=== PATIENT | male | born 1970 | race Caucasian/White ===

== ENCOUNTER → 2016-10-29 | Outpatient (CLI) | payer OTHER ==
[~2016-10-29] VITALS: Ht 190.5 cm; Wt 128.5 kg
[~2016-10-29] MED LIST: ASPIRIN EC81 M1 PO; CALCIUM 600 +1 EAC5 PO; DOLOPHINE HCL10 MG PO; DOXEPIN 10 MG C10 M1 PO; DOXEPIN 25 MG C25 M1 PO; FENTANYL PA12 MCG/H1 TP; FENTANYL PA12 MCG/HR TP; FENTANYL PA25 MCG/HR TD; FENTANYL PA25 MCG/HR TP; FENTANYL PA50 MCG/HR TP; GABAPENTIN600 M1 PO; GLUCOSAMINE &1 EACH PO; GRALISE600 MG PO; IBUPROFEN 800800 M1 PO; LISINOPRIL10 MG PO; LISINOPRIL20 MG PO; LYRICA 50 MG50 MG PO; METANX TABLET1 EAC1 PO; METHADONE HCL 110 M1 PO; METHADOSE10 M1 PO; MS CONTIN15 MG PO; MS CONTIN30 MG PO; MULTIVITAMINS PO; OXYCODONE HCL15 MG PO; OXYCODONE-ACET1 EAC2 PO; OXYCONTIN10 M1 PO; OXYCONTIN20 M1 PO; PERCOCET 10-321 EACH PO; PRILOSEC 20 MG20 MG PO; PROVIGIL 200 M200 M1 PO
--- NOTE | ~2016-10-29 | HPC ---
[facility] [address] [place] [address] PAIN MANAGEMENT CONSULTATION Name: FITZ HARRIS Room #: REG [facility]#: [id number] Admission: 10/29/16 Attend Phys: Jarod Green MD Discharge: Date of : 66 Report #: [id number] THIS REPORT FOR: //name// CC: Teja Green DATE OF SERVICE: 10/29/2016 FOLLOWUP COMPLAINT: I stopped taking the morphine, it made me itch too much. FOLLOWUP HISTORY: The patient is a 46-year-old gentleman who has been followed in the pain clinic because of chronic pain from peripheral neuropathy. It involves his lower extremities. As you may recall, he has been to the [facility] in regards to this. A workup found no true explanation for his neuropathy. He has found doxepin, gabapentin and ibuprofen to be helpful. He was taking MS Contin. He has noticed over the months use of the MS Contin has increased his pruritus. He has slowly stopped taking this medication and has weaned off of it. He has had no complications from withdrawal. PHYSICAL EXAMINATION: The patient is alert. He appears to be taking his medications as prescribed. Recently had an episode where he ate a salad. There was walnut involved. He had a major attack with shortness of breath and more difficulty breathing. He took a number of Benadryl tablets. Things subsided and improved. Blood pressure 156/95, pulse 83, respiratory rate 18, room air saturation 96%. The patient has some pain in his left leg, areas of pain and discomfort in the low back area, testicular pain which remains chronic with some tenderness in this area. Pain, numbness and weakness in his feet in the L4-L5 distribution. As you may recall, he had L4-L5 fusion in the past. ASSESSMENT AND PLAN: Chronic pain, lower extremities with peripheral neuropathy, treated with complex pain regiment using opioids. The patient has stopped taking morphine and has only used OxyContin 15 mg b.i.d. We would like to thank you for letting us participate in his care. We hope he continues to improve. By: [id number] Jarod Green MD /nt
== END | disposition home or self-care (01) ==
LOC: PAIN 05:59
DX: G62.9 Polyneuropathy, unspecified (principal)

== ENCOUNTER → 2017-01-23 | Outpatient (CLI) | payer OTHER ==
[~2017-01-23] VITALS: Ht 193 cm; Wt 125.9 kg
--- NOTE | ~2017-01-23 | HPC ---
[facility] [address] [place] [address] PAIN MANAGEMENT CONSULTATION Name: FITZ HARRIS Room #: REG [facility]#: [id number] Admission: 01/23/17 Attend Phys: Jarod Green MD Discharge: Date of : 66 Report #: [id number] THIS REPORT FOR: //name// CC: ILANA Green DATE OF SERVICE: 01/23/2017 FOLLOWUP COMPLAINT: Here for medication and things are going reasonably well. FOLLOWUP HISTORY: The patient is a 46-year-old gentleman who has been followed in the pain clinic because of chronic pain. As you recall, he has peripheral neuropathy. He has been seen at the [facility]. Number of treatment options have been provided. Overall, the patient feels that use of oxycodone, gabapentin and doxepin have been most successful. He would like to have these medications renewed. He does not have any problems with the medications. He keeps them in a guarded area. PHYSICAL EXAMINATION: Blood pressure 146/98, pulse 87, respiratory rate 20, room air O2 saturation is 97%, height 6 feet 4 inches, weight 125 kilograms, BMI is 33. The patient has pain and discomfort in the back of his leg some discomfort in the area of his testicles with tingling and neuropathy in his feet. IMPRESSION: Chronic pain in the lower extremities and peripheral neuropathy, complete, treated with gabapentin and opioids. RECOMMENDATIONS: We will continue with the patient's current medical regimen of gabapentin, doxepin and OxyIR. The patient stopped taking MS Contin given that it was not providing a significant amount of benefit. He is aware that opioid medications can cause addiction and tolerance may develop. He would like to continue with his medications at this juncture. A script for his medications has been written. We would like to thank you for letting us participate in his care. We hope he continues to improve. <ELECTRONICALLY SIGNED> By: Jarod Green MD 01/24/17 0820 1241 1945 Jarod Green MD /nt
[2017-01-23 09:12] VITALS: BP 146/98
== END ==
LOC: PAIN 06:44
DX: G62.9 Polyneuropathy, unspecified (principal); I10 Essential (primary) hypertension; F17.200 Nicotine dependence, unspecified, uncomplicated; F10.21 Alcohol dependence, in remission

== ENCOUNTER → 2017-04-24 | Outpatient (CLI) | payer OTHER ==
[~2017-04-24] VITALS: Ht 188 cm; Wt 123.4 kg
[~2017-04-24] MED LIST changes: +PROVIGIL 100 M100 M1 PO
--- NOTE | ~2017-04-24 | HPC ---
[facility] [address] [place] [address] PAIN MANAGEMENT CONSULTATION Name: FITZ HARRIS Room #: REG [facility]#: [id number] Admission: 04/24/17 Attend Phys: Jarod Green MD Discharge: Date of : 66 Report #: [id number] THIS REPORT FOR: //name// CC: ILANA Green DATE OF SERVICE: 04/24/2017 FOLLOWUP COMPLAINT: Here for medication renewal and having problem staying awake. FOLLOWUP HISTORY: The patient is a 47-year-old gentleman who has been followed in the pain clinic because of chronic pain associated with peripheral neuropathy. As you recall, he has had a significant workup at the [facility]. No significant findings have been discomfort for his neuropathy. Overall, he continues to work on a daily basis. He does have a history of increased somnolence. He was on Modafinil in the past. He found that this was helpful. At this juncture, he is now having more difficulty staying awake. He states that he can fall asleep within about 5 minutes. 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 This has made working from his home and on his job much more problematic. He is unable to get his activities resolved without being overly sleepy. PHYSICAL EXAMINATION: Blood pressure 150/95, pulse 81, respiratory rate 14, room air saturation 96%. Height 6 feet 2 inches, weight 272 pounds, BMI is 34. The patient continues to have pain and discomfort in the lower portion of his back, left leg, and testicles with numbness in his feet. He continues to have some difficulty staying awake while doing his work. He has a history of sleep problems and used Modafinil tablets in the past. He rates his pain as a 6-7 at this juncture. He feels that the medications of gabapentin and doxepin continue to be helpful. IMPRESSION: 1. History of sleep problems in the past with difficulty staying awake. 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 2. Chronic pain in lower extremities secondary to peripheral neuropathy, treated with gabapentin and oxycodone. He finds use of doxepin continues to be helpful with his pain control as well. RECOMMENDATIONS: We will continue with the patient's current use of these medications. A script for oxycodone, gabapentin, ibuprofen and Modafinil have been written. [address] [address] PAIN MANAGEMENT CONSULTATION Name: FITZ HARRIS [facility] [id number] Admission: 04/24/17 Attend Phys: Jarod Green MD Discharge: Date of : 66 Report #: [id number] We would like to thank you for letting us participate in his care. We hope he continues to improve. By: 0824 0007 MD ALTA Ramírez
[2017-04-24 08:41] VITALS: BP 150/95
== END | disposition home or self-care (01) ==
LOC: PAIN 06:54
DX: G89.29 Other chronic pain (principal); G62.9 Polyneuropathy, unspecified; Z79.899 Other long term (current) drug therapy; Z68.34 Body mass index [BMI] 34.0-34.9, adult; F17.210 Nicotine dependence, cigarettes, uncomplicated

== ENCOUNTER → 2017-07-19 | Outpatient (CLI) | payer OTHER ==
[~2017-07-19] VITALS: Ht 190.5 cm; Wt 123.5 kg
[~2017-07-19] MED LIST changes: +DOXEPIN 25 MG C25 MG PO; +PRED FORTE 1% EY5 M1 OPHTHALMIC
--- NOTE | ~2017-07-19 | HPC ---
[facility] [address] [place] [address] PAIN MANAGEMENT CONSULTATION Name: FITZ HARRIS Room #: REG [facility]#: [id number] Admission: 07/19/17 Attend Phys: Jarod Green MD Discharge: Date of : 66 Report #: [id number] THIS REPORT FOR: //name// CC: ILANA Green DATE OF SERVICE: 07/19/2017 FOLLOWUP COMPLAINT: Here for medications. Still feels like "a hot poker down in my right leg and testicle area". FOLLOWUP HISTORY: The patient is a 47-year-old gentleman who has been followed in the Pain Clinic. As you recall, he suffers from peripheral neuropathy. He has continued to have significant pain and discomfort in the lower extremities. Workup from [facility] indicated that he has a neuropathy. He continues to use doxepin, gabapentin, ibuprofen, Provigil and oxycodone. He has noticed that the Provigil has been quite efficacious. He is less sleepy. As you recall, he was falling asleep and having difficulty because of his medications and shift work. He feels that things have turned around tremendously as a result of his increased awareness while using Provigil. PHYSICAL EXAMINATION: Blood pressure 148/111, pulse 106, respiratory rate 20, room air saturation 98%. Height 6 feet 3 inches, weight 272 pounds, BMI is 34. The patient continues to have some pain and discomfort in the right leg down into his feet. Still has some discomfort in the testicular area. Describes it as aching with tenderness, throbbing, radiating, burning, cramping sensation, rates it as a 6/10. He has not had any trauma since we saw him last. He has not fallen. Does not smoke cigarettes. IMPRESSION: 1. 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 Improved with Provigil. 2. Chronic pain in lower extremities secondary to peripheral neuropathy, seen at the [facility]. 3. Chronic medication management, using opioid medications. RECOMMENDATIONS: We discussed treatment options with the patient. We discussed his use of oxycodone, gabapentin, ibuprofen, Provigil. Overall, he feels that the Provigil has made a quite remarkable improvement in his alertness. He would like to continue with this medication. He is having no complications with its use. He also would like to go to physical therapy for evaluation. A script for myofascial pain and neuropathy diagnosis have been written and [place] [address] PAIN MANAGEMENT CONSULTATION Name: FITZ HARRIS Room #: REG [facility]#: [id number] Admission: 07/19/17 Attend Phys: Jarod Green MD Discharge: Date of : 66 Report #: [id number] with a physical therapist. We would like to thank you for letting us participate in his care. We hope he continues to improve. <ELECTRONICALLY SIGNED> By: Jarod Green MD 08/09/17 0806 1237 1918 Jarod Green MD /[facility]
[2017-07-19 13:12] VITALS: BP 148/111
== END ==
LOC: PAIN 07:05
DX: G62.9 Polyneuropathy, unspecified (principal); M79.604 Pain in right leg; M79.605 Pain in left leg; G89.29 Other chronic pain; F11.90 Opioid use, unspecified, uncomplicated; Z79.899 Other long term (current) drug therapy

== ENCOUNTER → 2017-10-09 | Outpatient (CLI) | payer OTHER ==
[~2017-10-09] VITALS: Ht 190.5 cm; Wt 123.7 kg
--- NOTE | ~2017-10-09 | HPC ---
[facility] [address] [place] [address] PAIN MANAGEMENT CONSULTATION Name: FITZ HARRIS Room #: REG [facility] [id number] Admission: 10/09/17 Attend Phys: Jarod Green MD Discharge: Date of : 66 Report #: [id number] THIS REPORT FOR: //name// CC: Teja Green DATE OF SERVICE: 10/09/2017 FOLLOWUP COMPLAINT: Things are going relatively well. Still have some pain in the groin area with certain movements and in the testicular area. FOLLOWUP HISTORY: The patient is a 47-year-old gentleman who has been followed in the pain clinic. As you recall, he suffers from pain and discomfort in the low back area. He has pain that radiates down into his groin area. Certain activities as well as some movements exacerbate his pain. The patient has done some stretching, sometimes that exacerbates his testicular discomfort. Being intimate with his sometimes exacerbates his pain. He does on occasion have a sharp, shooting, burning pain down in the posterior calf of his right leg. Also, has some pain that radiates down the left leg and sometimes radiates from the foot back up into his leg. As you recall, he has gone to the [facility] and been worked up for this problem. Basically, it is felt that he has a neuropathy, etiology of which remains enigmatic. He finds that his current medical regimen is beneficial. He notes that he is more alert with use of his Provigil medication. He continues to work in the [employer] area. ALLERGIES: SULFA, LEVAQUIN, AND ELAVIL. 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 PAIN CLINIC ASSESSMENT: 1. History of osteoarthritis, not applicable. 2. Rheumatoid arthritis, not applicable. 3. Height 6 feet 3 inches, weight 272 pounds, BMI is 34. 4. Vital Signs: Blood pressure 142/88, pulse 80, respiratory rate 16, room air saturation 97%. 5. Pain intensity 01/19. 6. Fall risk. The patient tripped and kicked his bed involving the lateral portion of his foot involving the fifth toe. This was within the last 3 months. 7. The patient is not on blood thinner. 8. The patient is being treated for hypertension. 9. Opioid contract has been signed. [address] [address] PAIN MANAGEMENT CONSULTATION Name: FITZ HARRIS [facility] [id number] Admission: 10/09/17 Attend Phys: Jarod Green MD Discharge: Date of : 66 Report #: [id number] 10. Risk assessment tool indicates 1/10, which is low for opioid use. 11. Functional assessment tool in regard to general activity, mood, walking, work, relationships with others, sleep and enjoyment of life is rated at 41/70. PHYSICAL EXAMINATION: GENERAL: The patient is a well-developed white male with no significant problems. Appearance: Appears his stated age. Orientation: The patient is alert and oriented x 3. Affect: The patient's affect is appropriate. HEENT: The patient is normocephalic, atraumatic. Extraocular eye muscles intact. Normal hearing. Moist buccal membranes. No nasal complaints. NECK: No adenopathy. LUNGS: Clear to auscultation. HEART: Regular rate. ABDOMEN: Protuberant. MUSCULOSKELETAL: Normal alignment without significant scoliosis, kyphosis or lordosis. The patient has had some swelling in the lower extremities. He notes that the swelling in the lower extremities is less now that he is not taking some of the medications which have been used in the past. Muscle strength is judged to be 5/5 for the major muscle groups in the lower extremities. The patient has some pain and discomfort, which is consistent with neuropathic pain. Has some tenderness, throbbing radiation, burning, and cramping sensation in the lower extremities. IMPRESSION: 1. Chronic lower extremity pain as well as testicular pain, has been worked up at the [facility] with diagnosis of peripheral neuropathy. 2. Somnolence. The patient takes Provigil, which helps him with shift work somnolence. 3. Hypertension. 4. Gastrointestinal upset. The patient takes Prilosec. 5. Chronic pain medication using complex medical regimen. RECOMMENDATIONS: We discussed treatment options with the patient. We will continue with his current medical regimen. Overall, he feels that things are going reasonably well. He is not having any significant problems which are new. His medications continue to be helpful. He continues to try and stay active stretching as he is able to tolerate it. Continues to work. 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 Denies any confusion with opioid medications. He states that he is taking as prescribed. He is aware of the media coverage regarding opioids. He is aware that, about 65,000 people last year as a result of opioid overdoses. He states that he is taking his medication as prescribed. He keeps his medication in a guarded area. He has a [facility] [address] [place] [address] PAIN MANAGEMENT CONSULTATION Name: FITZ HARRIS Room #: REG [facility].#: [id number] Admission: 10/09/17 Attend Phys: Jarod Green MD Discharge: Date of : 66 Report #: [id number] young daughter. We will continue with his current medical regimen. A script for oxycodone, gabapentin, ibuprofen, modafinil have been written. <ELECTRONICALLY SIGNED> By: Jarod Green MD 10/23/17 1434 1358 1939 Jarod Green MD /[facility]
[2017-10-09 10:56] VITALS: BP 142/88
== END ==
LOC: PAIN 06:23
DX: G89.29 Other chronic pain (principal); N50.819 Testicular pain, unspecified; G62.9 Polyneuropathy, unspecified; I10 Essential (primary) hypertension; K30 Functional dyspepsia; Z79.899 Other long term (current) drug therapy; Z88.2 Allergy status to sulfonamides; Z88.1 Allergy status to other antibiotic agents

== ENCOUNTER → 2018-01-10 | Outpatient (CLI) | payer OTHER ==
[~2018-01-10] VITALS: Ht 190.5 cm; Wt 122.5 kg
[~2018-01-10] MED LIST changes: -DOXEPIN 25 MG C25 MG PO; -PRED FORTE 1% EY5 M1 OPHTHALMIC
--- NOTE | ~2018-01-10 | HPC ---
[facility] [place] [address] [place] [address] PAIN MANAGEMENT CONSULTATION Name: FITZ HARRIS [facility] [id number] Admission: 01/10/18 Attend Phys: Jarod Green MD Discharge: Date of : 66 Report #: [id number] THIS REPORT FOR: //name// CC: Teja Green DATE OF SERVICE: 01/10/2018 FOLLOWUP COMPLAINT: "I have had some problems with my eyes and my eye doctor recommend that I stop the doxepin." FOLLOWUP HISTORY: The patient is a 47-year-old gentleman, who has been followed in the pain clinic for quite some time. As you recall, he suffers from a peripheral neuropathy. He has pain and discomfort in his groin area. Also, has pain and discomfort, which radiates down into his legs. He notes some stabbing, shooting, and burning pain and discomfort. Also, has pain in the posterior portion of his right leg. As you may recall, he has been worked up in the [facility] for this problem. Finds that his current medications are helpful. The true etiology of this pain problem remains enigmatic. The patient has been visiting his eye doctor. Notes some redness in his left eye. He has been evaluated. There is some concern that maybe the tricyclic antidepressant properties of doxepin have caused some increased pressure in his eye. He has been asked to discontinue this medication to see whether or not this plays a role in this problem. He states that his intraocular pressures are good. ALLERGIES: SULFA, LEVAQUIN, AND ELAVIL. CURRENT MEDICATIONS: 1. 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 2. Oxycodone 15 mg IR b.i.d. 3. Ibuprofen 800 mg q.i.d. 4. Gabapentin 600 mg t.i.d. 5. Lisinopril 20 mg daily. 6. Calcium 600 mg daily. 7. Vitamin D. 8. Aspirin 81 mg. 9. Multivitamin tablet. 10. Prilosec 20 mg daily. 11. Glucosamine/chondroitin sulfate 1 capsule daily. 12. The patient was taking doxepin 25 mg at bedtime to help sleep and pain. PAIN CLINIC ASSESSMENT: 1. History of osteoarthritis. The patient has not been treated for [address] [address] PAIN MANAGEMENT CONSULTATION Name: JADA HARRISDEISI Henderson Room #: REG [facility]#: [id number] Admission: 01/10/18 Attend Phys: Jarod Green MD Discharge: Date of : 66 Report #: [id number] osteoarthritis. 2. Rheumatoid arthritis. The patient is not being treated for rheumatoid arthritis. 3. Height 6 feet 3 inches, weight is 270 pounds, BMI 33.7. 4. Vital signs: Blood pressure 132/93, pulse 86, respiratory rate 14, room air saturation is 98%. 5. Pain intensity 3/10. 6. Fall risk. The patient has not fallen in the last 3 months. 7. Blood thinner. The patient is not on any thinning agent. 8. History of hypertension. 9. Opioid therapy greater than 6 weeks. The patient is on opioid therapy and receives it from one physician in the pain clinic. 10. Risk assessment tool, low for use of opioid medication. 11. Functional assessment tool, the patient finds some encumbrance in activities of daily living secondary to pain and discomfort in low back area. 12. Recreational drug use. The patient denies use of recreational drugs. 13. Tobacco: The patient denies use of tobacco, smokes e-cigarettes. 14. Alcohol: The patient does drink alcohol on occasional basis. PHYSICAL EXAMINATION: GENERAL: The patient is a well-developed, well-nourished white male. No significant problems. His affect is appropriate. He is alert and oriented x 3. Hearing is within normal limits. HEENT: The patient has redness in the left eye. HEART: Regular rate without murmur. S1, S2. LUNGS: Clear to auscultation. NECK: Without adenopathy or JVD. ABDOMEN: Protuberant. MUSCULOSKELETAL: Without significant scoliosis, kyphosis or lordosis. The patient has had some lower extremity swelling. Muscle strength is judged to be 5/5 for the major muscle groups in the lower extremity as well as in the upper extremity. Has pain and discomfort in the lower extremity consistent with neuropathic pain. Has tenderness, throbbing radiation sensation, burning, cramping sensation in his lower extremities. IMPRESSION: 1. Chronic low back pain with pain in the testicular area -- worked up at [place] and diagnosed with peripheral neuropathy. 2. Somnolence. 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 3. Hypertension. 4. Gastroesophageal upset. 5. Chronic pain associated with complex medical regimen. RECOMMENDATIONS: We discussed treatment options with the patient. At this juncture, we will continue with his current medications. We will stop the doxepin and notice effect on swelling/increased fluid in his left eye. He will [address] [address] PAIN MANAGEMENT CONSULTATION Name: FITZ HARRIS Room #: REG [facility]#: [id number] Admission: 01/10/18 Attend Phys: Jarod Green MD Discharge: Date of : 66 Report #: [id number] call us if it continues to be problematic. We have explained that tricyclic anti-inflammatory medications have been implicated in increasing intracranial pressure in patients with glaucoma. The patient states that he is taking his medications as prescribed. He has continued to watch the news regarding opioid use, abuse, and misuse. States that he is taking his medications, would like to continue with his medications. Keeps them in a guarded area. A script for his medications of OxyIR 15 mg b.i.d., Provigil 100 mg daily, gabapentin 600 mg t.i.d., and ibuprofen 800 mg has been written. We would like to thank you for letting us participate in his care. We hope he continues to improve. By: [id number] 1822 Jarod Green MD /[facility]
[2018-01-10 08:13] VITALS: BP 132/93
== END ==
LOC: PAIN 07:17
DX: G89.29 Other chronic pain (principal); M54.5 Low back pain; G62.9 Polyneuropathy, unspecified; I10 Essential (primary) hypertension; K21.9 Gastro-esophageal reflux disease without esophagitis; Z79.899 Other long term (current) drug therapy; Z88.2 Allergy status to sulfonamides; Z88.1 Allergy status to other antibiotic agents

== ENCOUNTER → 2018-07-18 | Outpatient (CLI) | payer OTHER ==
[~2018-07-18] VITALS: Ht 190.5 cm; Wt 116.1 kg
[~2018-07-18] MED LIST changes: +DOXEPIN 25 MG C25 MG PO; +PRED FORTE 1% EY5 M1 OPHTHALMIC
--- NOTE | ~2018-07-18 | HPC ---
[facility] [address] [place] [address] PAIN MANAGEMENT CONSULTATION Name: FITZ HARRIS Room #: REG [facility]AY [facility]#: [id number] Admission: 07/18/18 Attend Phys: Jarod Green MD Discharge: Date of : 66 Report #: [id number] THIS REPORT FOR: //name// CC: Teja Green DATE OF SERVICE: 07/18/2018 FOLLOWUP COMPLAINT: Things are going reasonably well. FOLLOWUP HISTORY: The patient is a 48-year-old gentleman who has been followed in the Pain Clinic for quite some time. As you recall, he has neuropathic pain. He has been followed and worked up in the [facility]. The reason for his neuropathy is unknown. He has been having some pain and discomfort, which radiates down into the lower back, testicles, legs, and his feet. He notes that the pain is 6/10 today. He notes that activities such as sitting, cold weather, and other activities of daily living can increase his pain and discomfort. He feels that his medications continue to be helpful. The patient is having some pain and discomfort in the low back area. He has returned today for renewal of his medications. The patient has noted swelling, increased pain and discomfort in his right knee. Denies any trauma. He has had it drained in the past, but this seems to be more problematic. At this juncture, he is considering seeing an orthopedic surgeon to have an evaluation. ALLERGIES: SULFA, LEVAQUIN, AND ELAVIL. 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 PAIN CLINIC ASSESSMENT: 1. The patient is not being treated for osteoarthritis or rheumatoid arthritis. 2. Height 6 feet 3 inches, weight 256 pounds, BMI is 32. 3. Vital signs: Blood pressure 127/86, pulse 87, respiratory rate 18, room air saturation is 97%. 4. Pain intensity: 6/10. 5. Fall risk: The patient has not fallen in the last 3 months. 6. Blood thinner: The patient is not on a blood thinning medication. 7. Hypertension: The patient is being been treated for hypertension. 8. Opioids greater than 6 weeks: The patient receives his medication from the Pain Clinic. 9. Risk assessment tool: 1, low [place] [address] PAIN MANAGEMENT CONSULTATION Name: FITZ HARRIS Santiago [facility]: [facility] [id number] Admission: 07/18/18 Attend Phys: Jarod Green MD Discharge: Date of : 66 Report #: [id number] 10. Functional assessment tool: . 11. Recreational drug use: The patient denies use of recreational drugs. 12. Tobacco: The patient has never smoked and does not smoke cigarettes. 13. Alcohol: The patient denies other than occasional use of alcoholic beverages. PHYSICAL EXAMINATION: GENERAL: The patient is a well-developed, well-nourished, white male. He appears his stated age. He is alert and oriented x 3. His affect is appropriate. Speech is fluent. HEENT: Normocephalic, atraumatic. Extraocular eye muscles intact. Sclerae nonicteric. Mucous membranes are moist. NECK: With good range of motion without adenopathy. HEART: Regular rate. S1 and S2. ABDOMEN: Protuberant, soft. MUSCULOSKELETAL: Without significant scoliosis, kyphosis or lordosis. The patient does have some pain in the lower extremities, neuropathic in nature. It affects his feet bilaterally with some swelling. Muscle strength in the upper extremity is judged to be 5/5 for the major groups in the upper extremity without sensory change and 5/5 for the major muscle groups in the lower extremity. He is having pain and discomfort in his right knee. The patient denies any trauma. He states that he just started to notice some pain, which has been quite problematic. IMPRESSION: 1. Chronic low back pain with testicular pain, worked up for peripheral neuropathy at the [facility]. 2. Somnolence. 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 3. Hypertension. 4. New onset of pain and swelling in his right knee. 5. Gastroesophageal upset. 6. Chronic pain treated with complex medical regimen. RECOMMENDATIONS: We discussed treatment options with the patient. A script for all of his medications were rewritten. The patient is having some pain and discomfort in his knee. We spoke with him about Dr. Rajat Mccarty, who is an orthopedic surgeon. He is considering going to see him in regard to the chronic pain that he is experiencing in his knee now. A script for his medications of OxyIR 15 mg 1 p.o. b.i.d., Provigil 100 mg 1 daily, doxepin 25 mg at bedtime, ibuprofen 800 mg q.i.d. has all been written. [address] [address] PAIN MANAGEMENT CONSULTATION Name: FITZ HARRIS Room #: REG [facility]#: [id number] Admission: 07/18/18 Attend Phys: Jarod Green MD Discharge: Date of : 66 Report #: [id number] We would like to thank you for letting us participate in his care. We hope he continues to improve. By: [id number] Jarod Green MD /nt
[2018-07-18 08:21] VITALS: BP 127/86
== END ==
LOC: PAIN 05:40
DX: M54.5 Low back pain (principal); G89.29 Other chronic pain; N50.819 Testicular pain, unspecified; M79.671 Pain in right foot; M79.672 Pain in left foot; Z79.899 Other long term (current) drug therapy

== ENCOUNTER → 2018-12-12 | Outpatient (CLI) | payer OTHER ==
[~2018-12-12] VITALS: Ht 190.5 cm; Wt 116.3 kg
--- NOTE | ~2018-12-12 | HPC ---
[facility] [address] [place] [address] PAIN MANAGEMENT CONSULTATION Name: FITZ HARRIS Room #: REG JAY Phuong.#: [id number] Admission: 12/12/18 ������������������ Attend Phys: Jarod Green MD Discharge: ������������������ Date of : 66 Report #: [id number] THIS REPORT FOR: //name// CC: Teja Green DATE OF SERVICE: 12/12/2018 FOLLOWUP COMPLAINT: Here for medication renewal. HISTORY: The patient is a 48-year-old gentleman who has been followed in the pain clinic for quite a number of years. As you recall, he has had some pain and discomfort with neuropathy in his legs. He has undergone a workup. This workup has included trip to [facility]. Reason for his neuropathy remains enigmatic. Overall, he has found that the current medical regimen that he is on is helpful. He also has pain in his lower back. He has had pain in the testicles as well as the pain down his feet. Again, no good reason for the neuropathy has been found. Overall, he has continued to use and found oxycodone and gabapentin helpful. He has received some disheartening news in regards to his mother. She has a cancer in the lung ____ side as well as a number of metastases to other areas. She is undergoing therapy, which if it works may provide her with a year and year and half more life or should that fail, she may within the next few months. This is weighing heavily on him as well. The patient has been with the pain clinic for a number of years. We have never had problems with him. States that he is considering a move to [place] to be closer to loved ones. We have never had any problems with the patient taking his medications or violating the contract with the pain clinic. ALLERGIES: SULFA, LEVAQUIN, AND ELAVIL. 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 PAIN CLINIC ASSESSMENT AND PQRS: 1. The patient is not being treated for osteoarthritis or rheumatoid arthritis. 2. Height 6 feet 3 inches, weight 256 pounds, BMI is 32.0. 3. Vital signs: Blood pressure 136/91, pulse 76, respiratory rate 16, room air saturation 97%. 4. Pain intensity 7/10. 5. Fall history. The patient has not fallen in the last 3 months. 6. Blood thinner. The patient is not on a blood thinning medication. 7. Hypertension. The patient is [place] [address] PAIN MANAGEMENT CONSULTATION Name: FITZ HARRIS Room #: REG [facility].#: [id number] Admission: 12/12/18 ������������������ Attend Phys: Jarod Green MD Discharge: ������������������ Date of : 66 Report #: [id number] 8. Opiates greater than 6 weeks. The patient receives his medications from one source. 9. Risk assessment tool associated with use of opioids is low. 10. Functional assessment tool . 11. Recreational drug use. The patient denies. 12. Tobacco: The patient has never smoked. 13. Alcohol. The patient drinks alcoholic beverages on occasion. PHYSICAL EXAMINATION: GENERAL: The patient is a well-developed, well-nourished white male. Appears his stated age. He is alert and oriented x 3. His affect is appropriate. Speech is fluent. HEENT: Normocephalic, atraumatic. Extraocular eye muscles intact. Sclerae nonicteric. Mucous membranes are moist. NECK: Without adenopathy or JVD. HEART: Regular rate. ABDOMEN: Nontender. MUSCULOSKELETAL: Without significant scoliosis, kyphosis, or lordosis. The patient's upper extremity muscle strength is judged to be 5/5 for the major muscle groups. Lower extremity, the patient has pain and discomfort in the lower areas with sensory changes in the lower extremity with a history of findings consistent with neuropathy. Denies any trauma. IMPRESSION: 1. Chronic low back pain as well as testicular pain, worked up for peripheral neuropathy at [facility]. 2. Somnolence. 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 3. Hypertension. 4. New onset of pain and swelling in the right knee. 5. Gastroesophageal upset. 6. Chronic pain is treated with complex medical regimen. RECOMMENDATIONS: We discussed treatment options with the patient. At this juncture, we will continue with his medications. We are sad to hear that his mother is not feeling very well. We hope that things will continue to go well. Hope that her pain is controlled. The patient will call us if he has any concerns. The patient states that he is looking for another pain clinic in his new town. Again, I think that the patient has been a ____ patient. He has had no complications, has taken the medication as prescribed. [facility] [address] [place] [address] PAIN MANAGEMENT CONSULTATION Name: FITZ HARRIS Room #: REG [facility]#: [id number] Admission: 12/12/18 ������������������ Attend Phys: Jarod Green MD Discharge: ������������������ Date of : 66 Report #: [id number] We would like to thank you for letting us participate in his care. We hope he continues to improve. ��������������������������������������������� ���������������������������������������� By: ��������������������������������������������� [id number] Jarod Green MD /nt
[2018-12-12 08:10] VITALS: BP 136/91
--- NOTE | 2018-12-12 08:20 | NUR ---
Pain Clinic Assessment: 1. History of Osteoarthritis: Not Applicable History of Rheumatoid Arthritis: Not Applicable 2. Height: 6 ft. 3 in. 190.5 cm. Weight: 256.4 lb. oz. 116.303 kg. Patient's BMI: 32.0 3. Vital Signs: BP: 136/91 Pulse: 76 Resp: 16 Temp: 02 Sat: 97 ECG Mon: 4. Pain Intensity: 7 5. Fall Risk: Dizziness: N Needs help standing or walking: N Fallen in the last 3 months: N Fall risk comments: 6. Patient on Blood Thinner: None 7. History of Hypertension: Y 8. Opioid Therapy greater than 6 weeks: Y Opiate Contract Signed: 01/23/17 9. Risk Assessment Tool Provided: 1/LOW 10. Functional Assessment Tool: 11. Recreational Drug Use: Never Drug Type: Tobacco Use: Current Every Day Smoker Tobacco Type: Amount or Packs/day: How Many Years: Alcohol Use: Yes Frequency: Quant:
== END ==
LOC: PAIN 10-29 12:12
DX: M54.5 Low back pain (principal); G89.29 Other chronic pain; N50.819 Testicular pain, unspecified; M25.561 Pain in right knee; I10 Essential (primary) hypertension; K22.8 Other specified diseases of esophagus; Z79.899 Other long term (current) drug therapy

== ENCOUNTER → 2019-04-01 | Outpatient (CLI) | payer OTHER ==
[~2019-04-01] VITALS: Ht 190.5 cm; Wt 118.8 kg
[~2019-04-01] MED LIST changes: +NEURONTIN600 MG PO
--- NOTE | ~2019-04-01 | HPC ---
[facility] [place] [address] PAIN MANAGEMENT CONSULTATION Name: FITZ HARRIS Room #: REG [facility]#: [id number] Admission: 04/01/19 Attend Phys: Janette Albarran Discharge: Date of : 66 Report #: [id number] THIS REPORT FOR: //name// CC: Janette Griffin DATE OF SERVICE: 04/01/2019 CHIEF COMPLAINT: Chronic low back pain, bilateral leg pain. HISTORY OF PRESENT ILLNESS: This is a 49-year-old gentleman who returns to the pain clinic today for refill of his medications that he has been taking for several years for his chronic ongoing low back pain and neuropathy in his bilateral legs. He rates his pain score at 7/10 today. He tells me that it has started to hurt above his laminectomy scar slightly. It does not radiate around to his abdomen. It stays localized in the mid back currently. His pain is a sharp, aching tenderness that is worse with activity, weather and walking, but the medication and stretching is very beneficial. He tells me he has been having to stretch more since the mid back started hurting. He continues to travel quite a bit. He has not yet moved to [place] and still commuting there frequently. He denies any problems with constipation, though he does suffer from daytime somnolence and takes Provigil and finds the combination of his medications very beneficial. ALLERGIES: ELAVIL, SULFA, LEVAQUIN AND TREE NUTS. CURRENT MEDICATIONS: Doxepin 25 mg, gabapentin 600 mg, ibuprofen 800 mg, OxyIR 15 mg b.i.d., Provigil 100 mg, lisinopril 20, calcium, aspirin, multivitamin, Prilosec and glucosamine chondroitin. PQRS: 1. He is not being treated for osteoarthritis or rheumatoid arthritis. 2. Height is 6 feet 3 inches, weight is 262, BMI is 32. 3. Vital signs 146/94, pulse is 88, respirations 16, oxygen sat is 100. 4. Pain score is 7/10. 5. Denies dizziness. Does not need help walking or standing, has not fallen in the last 3 months. 6. The patient is not on any blood thinners, but he does take medicine for hypertension. 7. Opiate therapy is greater than 6 weeks; therefore, an opiate signed contract is on the chart. 8. Risk assessment tool is low. Functional assessment is . 9. Recreational drug use, he denies. He is a current smoker and occasionally drinks alcohol. According to the prescription monitoring system, the patient is filling [address] [address] PAIN MANAGEMENT CONSULTATION Name: FITZ HARRIS Room #: REG [facility] Wilbert#: [id number] Admission: 04/01/19 Attend Phys: Janette Albarran Discharge: Date of : 66 Report #: [id number] appropriately for his medications from Dr. Green. We will check a random drug screen on this patient today as there is not one on the chart. The patient's current morphine mEq is 45 according to the CDC guidelines. PHYSICAL EXAMINATION: GENERAL: This is a well-developed, well-nourished, well-hydrated 49-year-old gentleman who appears his stated age, placing his current pain score 7/10. HEENT: Normocephalic, atraumatic. Extraocular eye muscles are intact. Mucous membranes are moist. NECK: Without adenopathy or JVD. MUSCULOSKELETAL: Without significant kyphosis, scoliosis or lordosis. Complains of tenderness in his mid lumbar region slightly above his laminectomy scar, worse with flexion and extension that does increase his pain. The patient walks with a slightly antalgic gait. His lower extremity equal strength of 5/5 bilaterally. He does have decreased sensation in his bilateral legs due to his neuropathy. IMPRESSION: 1. Chronic low back pain. 2. Peripheral neuropathy. 3. Testicular pain. 4. Somnolence. 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 5. Hypertension. 6. Chronic pain, being treated under the medication management contract. We reviewed the fact that opiate medications are being used to provide analgesia adequate to support activities of daily living, not attempting to achieve a specific pain score on the 0-10 Visual Analog Scale. The current opiate medications are providing sufficient analgesia to allow the patient to participate in activities of daily living. The patient is not exhibiting any aberrant behavior suggestive of drug diversion. The patient is not having any adverse reactions to medications. The patient is not suffering from daytime somnolence or mental acuity changes. The patient is managing opiate-induced constipation with appropriate [id number] agents and dietary considerations. The patient was counseled on concern for caution with operating a motor vehicle while using opiate medications. A physical exam was performed and the patient's functional status was evaluated. All patients with back pain were advised against the bed rest greater than 4 days and were advised to return to normal activities. Pain score assessment was noted and the treatment plan was reviewed with the patient. All current medications, both prescribed and OTC were reviewed and reconciled on the electronic medical record. Tobacco screening was accomplished and smoking cessation was advised when indicated. BMI was noted and diet/exercise modification was recommended for all patients following outside normal [address] [address] PAIN MANAGEMENT CONSULTATION Name: FITZ HARRIS Room #: REG [facility]#: [id number] Admission: 04/01/19 Attend Phys: Janette Albarran Discharge: Date of : 66 Report #: [id number] parameters. I reviewed with the patient today their responsibilities to safeguard prescription medications, reviewed their responsibility to utilize medications only as prescribed by the physician. They are to seek and receive pain medications only from 1 physician group ( [facility]). They are to use 1 pharmacy and keep the clinic informed if they change pharmacies. Their responsibilities include making followup visits in a timely fashion and to avoid abrupt discontinuation of medication usage. Their responsibilities further include bringing their medications (bottles from the pharmacy with residual pills) to the visit for possible confirmation of pill counts and the patient understands it is their responsibility to submit to random drug screens to ensure both that the medications prescribed are present, and that no other controlled substances are present. All prescriptions provided today were generated electronically. PLAN: 1. We discussed treatment options with the patient today. The patient finds his medications somewhat beneficial. He is able to continue his work using his Provigil and his OxyIR. Scripts given today for OxyIR 15 mg, #60 for today, 4 and 8-week release Provigil 100 mg #30 with 2 additional refills, ibuprofen 800 mg 120 with 2 refills, gabapentin 600 mg t.i.d. with 2 refills and doxepin 25 mg #30 with 2 additional refills. 2. We did check a random drug screen on this patient today. We discussed the CDC guidelines. The patient was unaware of these and understands that he is below 50. So, he is seen every 3 months. 3. The patient is seen in collaboration with Dr. Brian Green. He will return in 3 months. By: [id number] Janette Albarran /keith
[2019-04-01 08:11] VITALS: BP 146/94
--- NOTE | 2019-04-01 08:25 | NUR ---
Pain Clinic Assessment: 1. History of Osteoarthritis: Not Applicable History of Rheumatoid Arthritis: Not Applicable 2. Height: 6 ft. 3 in. 190.5 cm. Weight: 262.0 lb. oz. 118.843 kg. Patient's BMI: 32.7 3. Vital Signs: BP: 146/94 Pulse: 88 Resp: 16 Temp: 02 Sat: 100 ECG Mon: 4. Pain Intensity: 7 5. Fall Risk: Dizziness: N Needs help standing or walking: N Fallen in the last 3 months: N Fall risk comments: 6. Patient on Blood Thinner: None 7. History of Hypertension: Y 8. Opioid Therapy greater than 6 weeks: Y Opiate Contract Signed: 01/23/17 9. Risk Assessment Tool Provided: 1/LOW 10. Functional Assessment Tool: 11. Recreational Drug Use: Never Drug Type: Tobacco Use: Current Every Day Smoker Tobacco Type: Amount or Packs/day: How Many Years: Alcohol Use: Yes Frequency: Quant:
== END ==
LOC: PAIN 06:37
DX: G62.9 Polyneuropathy, unspecified (principal); M54.5 Low back pain; G89.29 Other chronic pain; N50.819 Testicular pain, unspecified; I10 Essential (primary) hypertension; Z79.899 Other long term (current) drug therapy

== ENCOUNTER → 2019-07-01 | Outpatient (CLI) | payer OTHER ==
[~2019-07-01] VITALS: Ht 190.5 cm; Wt 121.8 kg
[~2019-07-01] MED LIST changes: +IBU800 MG PO; +PROVIGIL 100 M100 MG PO
[2019-07-01 08:12] VITALS: BP 147/102
--- NOTE | 2019-07-01 08:26 | NUR ---
Pain Clinic Assessment: 1. History of Osteoarthritis: Not Applicable History of Rheumatoid Arthritis: Not Applicable 2. Height: 6 ft. 3 in. 190.5 cm. Weight: 268.6 lb. oz. 121.836 kg. Patient's BMI: 33.6 3. Vital Signs: BP: 147/102 Pulse: 80 Resp: 16 Temp: 02 Sat: 100 ECG Mon: 4. Pain Intensity: 8 5. Fall Risk: Dizziness: N Needs help standing or walking: N Fallen in the last 3 months: N Fall risk comments: 6. Patient on Blood Thinner: None 7. History of Hypertension: Y 8. Opioid Therapy greater than 6 weeks: Y Opiate Contract Signed: 01/23/17 9. Risk Assessment Tool Provided: LOW RISK 08/14 10. Functional Assessment Tool: 11. Recreational Drug Use: Never Drug Type: Tobacco Use: Current Every Day Smoker Tobacco Type: E-Cigarettes Amount or Packs/day: VAPE How Many Years: Alcohol Use: Yes Frequency: Weekly Quant: 1
--- NOTE | 2019-07-01 15:14 | HPC ---
[facility] [address] [place] [address] PAIN MANAGEMENT CONSULTATION Name: FITZ HARRIS [facility] [id number] Admission: 07/01/19 Attend Phys: Janette Albarran Discharge: Date of : 66 Report #: [id number] THIS REPORT FOR: //name// CC: Janette Lezama Griffin DATE OF SERVICE: 07/01/2019 CHIEF COMPLAINT: Chronic low back pain, bilateral leg pain and testicular pain. HISTORY OF PRESENT ILLNESS: This is a 49-year-old gentleman who returns to the pain clinic today for refill of his medications that he uses to help treat his various pain issues. He reports a higher pain score than normal of 8/10 today. He tells me his testicular pain has increased over the past couple of months as well as his low back pain. He feels that the weather changes have been making them worse. It is an aching, sharp, tender pain. He also has pain with increased activity and sitting. The patient tells me he has been under a lot of stress lately. He has not moved to [place] permanently because his mother had been ill and then recently . He feels this plays a part in some of his increased pain as well. 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 He would like refills today of his medications. ALLERGIES: ELAVIL, SULFA, LEVAQUIN AND TREE NUTS. CURRENT LIST OF MEDICATIONS: Doxepin 25 mg p.r.n., gabapentin 600 mg t.i.d., ibuprofen 800 mg q.i.d., OxyIR 15 mg b.i.d., Provigil 100 mg daily, lisinopril 20 mg daily, calcium, aspirin, multivitamin, glucosamine, chondroitin and Prilosec. PQRS: 1. He is not being treated for osteoarthritis or rheumatoid arthritis. 2. Height is 6 feet 3 inches, weight is 268, BMI is 33. 3. Vital signs 147/102, pulse is 80, respirations 16, oxygen sat is 100. 4. Pain score is 8/10. 5. Denies dizziness, does not need help walking or standing, has not fallen in the last 3 months. 6. The patient is not on any blood thinners, but does take medicine for hypertension. 7. Opioid therapy is greater than 6 weeks, opioid signed contract is on the chart. Risk assessment tool is low. Functional assessment is 41/70. 8. Recreational drug use, he denies. He is a current e-cigarettes vaper and does drink alcohol about 1 drink a week. According to the prescription monitoring system, the patient is filling appropriately for his medications in a timely fashion. There is a recent drug [address] [address] PAIN MANAGEMENT CONSULTATION Name: FITZ HARRIS Room #: REG [facility]#: [id number] Admission: 07/01/19 Attend Phys: Janette Albarran Discharge: Date of : 66 Report #: [id number] screen on his chart that is appropriate for his medications. According to the prescription monitoring system, his morphine mEq is 45 per day. PHYSICAL EXAMINATION: GENERAL: This is a well-developed, well-nourished 49-year-old gentleman who appears his stated age, placing his current pain score at 8/10 today. HEENT: Normocephalic, atraumatic. Extraocular eye muscles are intact. Mucous membranes are moist. EXTREMITIES: No edema noted. MUSCULOSKELETAL: The patient complains of pain in his lumbar back with radicular symptoms into his bilateral legs. He does walk with a slightly antalgic gait. He has lower extremity strength of 5/5 but decreased sensation due to his neuropathy. He is without significant scoliosis, kyphosis or lordosis. ASSESSMENT: 1. Chronic low back pain. 2. Peripheral neuropathy. 3. Testicular pain. 4. 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 5. Hypertension. 6. Chronic pain, being treated with complex medical management. We reviewed the fact that opiate medications are being used to provide analgesia adequate to support activities of daily living, not attempting to achieve a specific pain score on the 0-10 Visual Analog Scale. The current opiate medications are providing sufficient analgesia to allow the patient to participate in activities of daily living. The patient is not exhibiting any aberrant behavior suggestive of drug diversion. The patient is not having any adverse reactions to medications. The patient is not suffering from daytime somnolence or mental acuity changes. The patient is managing opiate-induced constipation with appropriate hxay-icf-ddpmqoy agents and dietary considerations. The patient was counseled on concern for caution with operating a motor vehicle while using opiate medications. PLAN: 1. We discussed treatment options with the patient today. The patient feels his medications have been beneficial, though he has had increased pain recently, but is not requesting an increase in his pills. He is hopeful that it will subside back to his usual pain. He is requesting refills of his OxyIR 15 mg, #60 given today, 4-week and 8-week as well as Provigil 100 mg, #30 with 2 additional refills. 2. We e-scribed his gabapentin 600 mg t.i.d., #90 with 5 additional refills that he finds very beneficial for his neuropathic leg pain and ibuprofen 800 mg #120 with 5 additional refills. He denies any gastric issues from the ibuprofen. [facility] [address] [place] [address] PAIN MANAGEMENT CONSULTATION Name: FITZ HARRIS Room #: [facility].#: [id number] Admission: 07/01/19 Attend Phys: Janette Albarran Discharge: Date of : 66 Report #: [id number] 3. The patient will be moving to [place] soon. We encouraged him to find a doctor there prior to running out of his medications since it may take some time to get an appointment and also encouraged him to get his records from our Medical Record Department. 4. The patient is seen in collaboration with Dr.Wayne Green. <ELECTRONICALLY SIGNED> By: Janette Albarran 07/01/19 1514 [id number] Janette Albarran /keith
== END ==
LOC: PAIN 06:57
DX: M54.5 Low back pain (principal); G89.29 Other chronic pain; G62.9 Polyneuropathy, unspecified; I10 Essential (primary) hypertension; N50.819 Testicular pain, unspecified; M79.604 Pain in right leg; M79.605 Pain in left leg; Z79.899 Other long term (current) drug therapy

== ENCOUNTER → 2019-10-21 | Outpatient (CLI) | payer OTHER ==
[~2019-10-21] VITALS: Ht 190.5 cm; Wt 119.8 kg
[2019-10-21 08:26] VITALS: BP 147/101
--- NOTE | 2019-10-21 08:47 | NUR ---
Pain Clinic Assessment: 1. History of Osteoarthritis: Not Applicable History of Rheumatoid Arthritis: Not Applicable 2. Height: 6 ft. 3 in. 190.5 cm. Weight: 264.0 lb. oz. 119.750 kg. Patient's BMI: 33.0 3. Vital Signs: BP: 147/101 Pulse: 89 Resp: 16 Temp: 02 Sat: 99 ECG Mon: 4. Pain Intensity: 8 5. Fall Risk: Dizziness: N Needs help standing or walking: N Fallen in the last 3 months: Y Fall risk comments: 6. Patient on Blood Thinner: None 7. History of Hypertension: Y 8. Opioid Therapy greater than 6 weeks: Y Opiate Contract Signed: 01/23/17 9. Risk Assessment Tool Provided: LOW RISK 1 10. Functional Assessment Tool: 11. Recreational Drug Use: Never Drug Type: Tobacco Use: Vaping Tobacco Type: Amount or Packs/day: How Many Years: Alcohol Use: Yes Frequency: Monthly Quant: 1-2
--- NOTE | 2019-10-21 15:14 | HPC ---
[facility] [address] [place] [address] PAIN MANAGEMENT CONSULTATION Name: FITZ HARRIS Room #: REG [facility]#: [id number] Admission: 10/21/19 Attend Phys: Janette Albarran Discharge: Date of : 66 Report #: [id number] THIS REPORT FOR: cc: Teja Griffin MD,Teja Albarran,Janette GARCIA ~ DATE OF SERVICE: 10/21/2019 CHIEF COMPLAINT: Chronic low back pain, bilateral leg pain and testicular pain. HISTORY OF PRESENT ILLNESS: This is a 49-year-old gentleman who returns to the pain clinic today for refill of his medications that he uses to help treat his low back pain and leg pain. He reports a pain score today of 8/10. His bilateral feet are burning and he said his legs have been hurting worse with weather changes. He said normally his pain is also increased with activity and prolonged walking. He feels the medications are usually beneficial as well as stretching. He does report that in August and into September, he had about a 3-week period where his pain was significantly decreased. He was requiring very minimal pain medication and rated his pain at 2-3. He was hopeful that it would last longer, but his pain has since returned back to its normal level. He reports that is why he is not adhering with normal 3-month cycle because he had extra pain medicine due to this period of decreased pain. He denies any problems with constipation. He does have daytime sleepiness and does take Provigil. He finds that very beneficial in helping with his somnolence. ALLERGIES: AMITRIPTYLINE, SULFA, LEVAQUIN. CURRENT LIST OF MEDICATIONS: OxyIR p.r.n., Provigil 100 mg, gabapentin, ibuprofen, doxepin, lisinopril, calcium, aspirin, multivitamin, Prilosec and glucosamine. PQRS: 1. He is not being treated for osteo or rheumatoid arthritis. 2. Height is 6 feet 3 inches, weight is 264, BMI is 33. 3. Vital signs: Blood pressure 147/101, pulse is 89, respirations 16, oxygen sat is 99. Pain score is 8/10. He denies dizziness, does not need help walking or standing. He has fallen in the last 3 months, but did not seek medical attention. He is not on any blood thinners, but does take medicine for hypertension, which is elevated today. His opioid therapy is greater than 6 weeks; therefore, an opioid signed contract is on the chart. Risk assessment tool is low. Functional assessment is 41/70. 4. Recreational drug use, he denies. He does vape on a daily basis and does drink 1-2 drinks of alcohol a day. According to the prescription monitoring system, the patient is filling [address] [address] PAIN MANAGEMENT CONSULTATION Name: FITZ HARRIS Room #: REG [facility] Wilbert#: [id number] Admission: 10/21/19 Attend Phys: Janette Albarran Discharge: Date of : 66 Report #: [id number] appropriately for his medications. He is due for those refills today. His current morphine milliequivalent according to the CDC guidelines is 45. PHYSICAL EXAMINATION: GENERAL: This is alert and orientated 49-year-old gentleman who appears his stated age, placing his current pain score an 8/10. HEENT: Normocephalic, atraumatic. Extraocular eye muscles are intact. Mucous membranes are moist. NECK: Good range of motion without adenopathy or JVD. MUSCULOSKELETAL: He is without significant scoliosis, kyphosis or lordosis. He has pain in his lower extremities, which is neuropathic in nature, it affects his bilateral feet, but no swelling noted today. His muscle strength in his upper and lower extremities judged to be 5/5 with good sensation from L1 to S2. He has discomfort in his knees and hips. Pain radiates from his lower back into his testicular area. ASSESSMENT: 1. Chronic low back pain. 2. Peripheral neuropathy. 3. Testicular pain. 4. 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 5. Hypertension. 6. Chronic pain, being treated with complex medical management under terms of written opioid agreement. We reviewed the fact that opiate medications are being used to provide analgesia adequate to support activities of daily living, not attempting to achieve a specific pain score on the 0-10 Visual Analog Scale. The current opiate medications are providing sufficient analgesia to allow the patient to participate in activities of daily living. The patient is not exhibiting any aberrant behavior suggestive of drug diversion. The patient is not having any adverse reactions to medications. The patient is not suffering from daytime somnolence or mental acuity changes. The patient is managing opiate-induced constipation with appropriate iikx-fty-kynjhpv agents and dietary considerations. The patient was counseled on concern for caution with operating a motor vehicle while using opiate medications. A physical exam was performed and the patient's functional status was evaluated. All patients with back pain were advised against the bed rest greater than 4 days and were advised to return to normal activities. Pain score assessment was noted and the treatment plan was reviewed with the patient. All current medications, both prescribed and OTC were reviewed and reconciled on the electronic medical record. Tobacco screening was accomplished and smoking cessation was advised when indicated. BMI was noted and diet/exercise modification was recommended for all patients following outside normal parameters. [facility] [address] [place] [address] PAIN MANAGEMENT CONSULTATION Name: FITZ HARRIS Room #: [facility]#: [id number] Admission: 10/21/19 Attend Phys: Janette JOSE Deion Discharge: Date of : 66 Report #: [id number] I reviewed with the patient today their responsibilities to safeguard prescription medications, reviewed their responsibility to utilize medications only as prescribed by the physician. They are to seek and receive pain medications only from 1 physician group ( [facility]). They are to use 1 pharmacy and keep the clinic informed if they change pharmacies. Their responsibilities include making followup visits in a timely fashion and to avoid abrupt discontinuation of medication usage. Their responsibilities further include bringing their medications (bottles from the pharmacy with residual pills) to the visit for possible confirmation of pill counts and the patient understands it is their responsibility to submit to random drug screens to ensure both that the medications prescribed are present, and that no other controlled substances are present. All prescriptions provided today were generated electronically. PLAN: 1. We discussed treatment options with the patient today. The patient has still not fully moved to [place]. He has been interviewing pain clinics. He is finding a hard time finding a doctor that will write his medications and continue to prescribe them for him. They have been very helpful in the past and continue to be, so he would like to remain on these with a new doctor there. He will continue to search for a physician. In the meantime, he does see Dr. Green every 3 months or myself for medication management today. We will refill his medications. 2. Scripts given by Dr. Green for OxyIR 15 mg, #60 for 3 months as well as Provigil 100 mg, #30 with 2 additional refills. 3. I have sent electronically his gabapentin 600 mg t.i.d., #90 with 5 refills and ibuprofen 800 mg #120, with 5 additional refills. The patient is not needing doxepin today. 4. 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 I encouraged him to seek his primary care doctors and has been elevated for several visits. 5. The patient is seen in collaboration with Dr. Miguel Angel Green. <ELECTRONICALLY SIGNED> By: Janette Albarran 10/21/19 1514 [id number] Janette Albarran /nt
== END ==
LOC: PAIN 06:37
DX: M54.5 Low back pain (principal); N50.819 Testicular pain, unspecified; M79.606 Pain in leg, unspecified; I10 Essential (primary) hypertension; G89.29 Other chronic pain; F11.20 Opioid dependence, uncomplicated; G62.9 Polyneuropathy, unspecified; R40.0 Somnolence; Z88.2 Allergy status to sulfonamides; Z88.8 Allergy status to other drugs, medicaments and biological substances; Z79.01 Long term (current) use of anticoagulants; Z79.82 Long term (current) use of aspirin; Z79.899 Other long term (current) drug therapy

== ENCOUNTER → 2020-01-13 | Outpatient (CLI) | payer OTHER ==
[~2020-01-13] VITALS: Ht 190.5 cm; Wt 121.6 kg
[~2020-01-13] MED LIST changes: +ROXICODONE15 M1 PO; +ROXICODONE15 MG PO
[2020-01-13 08:20] VITALS: BP 159/105
--- NOTE | 2020-01-13 08:29 | NUR ---
Pain Clinic Assessment: 1. History of Osteoarthritis: BACK KNEES History of Rheumatoid Arthritis: Not Applicable 2. Height: 6 ft. 3 in. 190.5 cm. Weight: 268.0 lb. oz. 121.564 kg. Patient's BMI: 33.5 3. Vital Signs: BP: 159/105 Pulse: 91 Resp: 16 Temp: 02 Sat: 96 ECG Mon: 4. Pain Intensity: 8 5. Fall Risk: Dizziness: N Needs help standing or walking: N Fallen in the last 3 months: N Fall risk comments: 6. Patient on Blood Thinner: None 7. History of Hypertension: Y 8. Opioid Therapy greater than 6 weeks: Y Opiate Contract Signed: 01/23/17 9. Risk Assessment Tool Provided: LOW RISK 1 10. Functional Assessment Tool: 11. Recreational Drug Use: Never Drug Type: Tobacco Use: Vaping Tobacco Type: Amount or Packs/day: How Many Years: Alcohol Use: Yes Frequency: Monthly Quant: 1-2
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
== END ==
LOC: PAIN 06:52
DX: Z51.81 Encounter for therapeutic drug level monitoring (principal); I10 Essential (primary) hypertension; K30 Functional dyspepsia; G62.9 Polyneuropathy, unspecified; Z79.899 Other long term (current) drug therapy

== ENCOUNTER → 2020-04-20 | Outpatient (CLI) | payer OTHER ==
[~2020-04-20] VITALS: Ht 190.5 cm; Wt 122.2 kg
--- NOTE | ~2020-04-20 | HPC ---
[facility] [place] [address] PAIN MANAGEMENT CONSULTATION Name: FITZ HARRIS Room #: REG JAY MihaiMichele#: [id number] Admission: 04/20/20 Attend Phys: Jarod Green MD Discharge: Date of : 66 Report #: [id number] THIS REPORT FOR: cc: Teja Griffin MD,Teja Green,Jarod Torres MD ~ CC: Teja Green DATE OF SERVICE: 04/20/2020 CHIEF COMPLAINT: "I had a skin graft because of using cold compresses to the buttocks area. HISTORY: The patient is a 50-year-old gentleman who has been followed in the pain clinic because of chronic pain involving his legs. There is a neuropathic component to it. The patient has been worked up at the [facility]. The reason for the neuropathy remains an enigma. The patient has been using cold modalities to help control the pain. He had an item where he could either use it in the microwave and heat it up or in the refrigerator and cool it down. The patient put a cold compress on his back, he let it stay for some period of time. He then noticed some problems with his back. States that he went to the Emergency Room and was told that he has significant tissue breakdown. He would need a skin graft. The patient was hospitalized for about 9 days. He has undergone skin grafting and feels that things are healing. He has returned today for renewal of his medications. ALLERGIES: SULFA, LEVAQUIN, AND ELAVIL. 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 PAIN CLINIC ASSESSMENT/PQRS: 1. The patient is not being treated for osteoarthritis or rheumatoid arthritis. The patient does have some pain and discomfort in the low back and his knees. 2. Height 6 feet 3 inches, weight 269 pounds, BMI 33. 3. Vital signs: Blood pressure 167/103, pulse 96, respiratory rate 18, room air saturation 98%. 4. Pain intensity 7-8/10. 5. Fall history: The patient has not fallen in the last 3 months. 6. Blood thinner: The patient is not on a blood thinning medication. 7. Hypertension: The patient is being treated for hypertension. 8. Opioids greater than 6 weeks: The patient [place] [address] PAIN MANAGEMENT CONSULTATION Name: FITZ HARRIS Santiago [id number] Admission: 04/20/20 Attend Phys: Jarod Green MD Discharge: Date of : 66 Report #: [id number] 9. Risk assessment tool: Low for opioid use. 10. Functional assessment tool 41/70. 11. Recreational drug use: The patient denies. 12. Tobacco: The patient does vape. 13. Alcohol: The patient occasionally drinks alcoholic beverage monthly. PHYSICAL EXAMINATION: GENERAL: The patient is a well-developed, well-nourished white male. Appears his stated age. He is alert and oriented x 3. His affect is appropriate. Speech is fluent. HEENT: Normocephalic. Extraocular eye muscles intact. The patient is wearing a mask. HEART: Regular rate. ABDOMEN: Nontender. MUSCULOSKELETAL: Without significant scoliosis, kyphosis or lordosis. The patient does have a well-healing scar on the lateral portion of his thigh. Has areas in the buttocks area where skin grafts have been provided. They appear to be healing reasonably well. There is no sign of infection. The patient does complain of pain in the lower extremities. Has findings consistent with his neuropathy. IMPRESSION: 1. Well-healing skin grafts in the buttocks area, left and right. 2. Chronic low back pain as well as testicular pain with peripheral neuropathy. 3. Somnolence. 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 4. Hypertension. 5. Right knee pain. 6. Gastroesophageal upset. 7. Chronic pain with treatment of pain with complex medical management. RECOMMENDATIONS: We discussed treatment options with the patient. At this juncture, we will continue with his medications. He finds that the medications continue to be helpful. A script for his medications has been sent to his pharmacy. He will continue with oxycodone 15 mg 1 p.o. b.i.d. He will also continue with Provigil 100 mg daily. The patient will take ibuprofen 800 mg and monitor his GI status. The patient will use gabapentin 600 mg t.i.d. He will also continue with doxepin 25 mg at bedtime. He will call us if he has any concerns. We would like to thank you for letting us participate in his care. We hope he [address] [address] PAIN MANAGEMENT CONSULTATION Name: FITZ HARRIS [facility] #: [id number] Admission: 04/20/20 Attend Phys: Jarod Green MD Discharge: Date of : 66 Report #: [id number] continues to improve. Hopefully, things will continue to heal well in the grafted areas. By: [id number] Jarod Green MD /MOE
[2020-04-20 09:02] VITALS: BP 167/103
--- NOTE | 2020-04-20 09:13 | NUR ---
Pain Clinic Assessment: 1. History of Osteoarthritis: BACK KNEES History of Rheumatoid Arthritis: Not Applicable 2. Height: 6 ft. 3 in. 190.5 cm. Weight: 269.4 lb. oz. 122.199 kg. Patient's BMI: 33.7 3. Vital Signs: BP: 167/103 Pulse: 96 Resp: 18 Temp: 02 Sat: 98 ECG Mon: 4. Pain Intensity: 7-8 5. Fall Risk: Dizziness: N Needs help standing or walking: N Fallen in the last 3 months: N Fall risk comments: 6. Patient on Blood Thinner: None 7. History of Hypertension: Y 8. Opioid Therapy greater than 6 weeks: Y Opiate Contract Signed: 01/23/17 9. Risk Assessment Tool Provided: LOW RISK 1 10. Functional Assessment Tool: 11. Recreational Drug Use: Never Drug Type: Tobacco Use: Vaping Tobacco Type: Amount or Packs/day: How Many Years: Alcohol Use: Yes Frequency: Monthly Quant: 1
== END ==
LOC: PAIN 06:49
PROVIDERS: ATTEND Anesthesiology Pain Medicine
DX: G89.29 Other chronic pain (principal); I10 Essential (primary) hypertension; K30 Functional dyspepsia; Z79.899 Other long term (current) drug therapy

== ENCOUNTER → 2020-07-20 | Outpatient (CLI) | payer OTHER ==
[~2020-07-20] VITALS: Ht 190.5 cm; Wt 117.6 kg
[~2020-07-20] MED LIST changes: +ANDROGEL2.5 G1 TOP
[2020-07-20 08:00] VITALS: BP 136/94
--- NOTE | 2020-07-20 08:09 | NUR ---
Pain Clinic Assessment: 1. History of Osteoarthritis: BACK KNEES History of Rheumatoid Arthritis: Not Applicable 2. Height: 6 ft. 3 in. 190.5 cm. Weight: 259.2 lb. oz. 117.573 kg. Patient's BMI: 32.4 3. Vital Signs: BP: 136/94 Pulse: 81 Resp: 18 Temp: 02 Sat: 94 ECG Mon: 4. Pain Intensity: 5-6 5. Fall Risk: Dizziness: N Needs help standing or walking: N Fallen in the last 3 months: N Fall risk comments: 6. Patient on Blood Thinner: None 7. History of Hypertension: Y 8. Opioid Therapy greater than 6 weeks: Y Opiate Contract Signed: 01/23/17 9. Risk Assessment Tool Provided: LOW RISK 1 10. Functional Assessment Tool: 11. Recreational Drug Use: Never Drug Type: Tobacco Use: Vaping Tobacco Type: E-Cigarettes Amount or Packs/day: 2 How Many Years: Alcohol Use: Yes Frequency: Weekly Quant: 1 DRINK A WEEK OR LESS
== END ==
LOC: PAIN 06:44
PROVIDERS: ATTEND Anesthesiology Pain Medicine
DX: M54.5 Low back pain (principal); M25.561 Pain in right knee; G89.29 Other chronic pain; R40.0 Somnolence; K21.9 Gastro-esophageal reflux disease without esophagitis; Z79.891 Long term (current) use of opiate analgesic

== ENCOUNTER → 2020-09-21 | Outpatient (CLI) | payer OTHER ==
[~2020-09-21] VITALS: Ht 190.5 cm; Wt 116.1 kg
[~2020-09-21] MED LIST changes: +PROVIGIL 200 M200 MG PO
[2020-09-21 09:28] VITALS: BP 140/96
--- NOTE | 2020-09-21 09:32 | NUR ---
Pain Clinic Assessment: 1. History of Osteoarthritis: BACK KNEES History of Rheumatoid Arthritis: Not Applicable 2. Height: 6 ft. 3 in. 190.5 cm. Weight: 256.0 lb. oz. 116.121 kg. Patient's BMI: 32.0 3. Vital Signs: BP: 140/96 Pulse: 94 Resp: 16 Temp: 02 Sat: 100 ECG Mon: 4. Pain Intensity: 5-6 5. Fall Risk: Dizziness: N Needs help standing or walking: N Fallen in the last 3 months: N Fall risk comments: 6. Patient on Blood Thinner: None 7. History of Hypertension: Y 8. Opioid Therapy greater than 6 weeks: Y Opiate Contract Signed: 01/23/17 9. Risk Assessment Tool Provided: LOW RISK 1 10. Functional Assessment Tool: 11. Recreational Drug Use: Never Drug Type: Tobacco Use: Vaping Tobacco Type: Amount or Packs/day: How Many Years: Alcohol Use: Yes Frequency: Quant:
== END ==
LOC: PAIN 06:47
PROVIDERS: ATTEND Anesthesiology Pain Medicine
DX: M54.5 Low back pain (principal); G89.29 Other chronic pain; I10 Essential (primary) hypertension; M25.561 Pain in right knee; K21.9 Gastro-esophageal reflux disease without esophagitis; R40.0 Somnolence; Z88.8 Allergy status to other drugs, medicaments and biological substances; Z79.899 Other long term (current) drug therapy

== ENCOUNTER → 2020-12-16 | Outpatient (CLI) | payer OTHER ==
[~2020-12-16] VITALS: Ht 193 cm; Wt 111.0 kg
[2020-12-16 09:08] VITALS: BP 135/95
--- NOTE | 2020-12-16 09:09 | NUR ---
Pain Clinic Assessment: 1. History of Osteoarthritis: BACK KNEES History of Rheumatoid Arthritis: Not Applicable 2. Height: 6 ft. 4 in. 193.0 cm. Weight: 244.6 lb. oz. 110.950 kg. Patient's BMI: 29.8 3. Vital Signs: BP: 135/95 Pulse: 79 Resp: 16 Temp: 02 Sat: 98 ECG Mon: 4. Pain Intensity: 5-6 5. Fall Risk: Dizziness: N Needs help standing or walking: N Fallen in the last 3 months: N Fall risk comments: 6. Patient on Blood Thinner: None 7. History of Hypertension: Y 8. Opioid Therapy greater than 6 weeks: Y Opiate Contract Signed: 01/23/17 9. Risk Assessment Tool Provided: LOW RISK 1 10. Functional Assessment Tool: 11. Recreational Drug Use: Never Drug Type: Tobacco Use: Vaping Tobacco Type: Amount or Packs/day: How Many Years: Alcohol Use: Yes Frequency: Quant:
== END ==
LOC: PAIN 07:10
PROVIDERS: ATTEND Clinical Nurse Specialist Adult Health
DX: G62.9 Polyneuropathy, unspecified (principal); I10 Essential (primary) hypertension; M19.90 Unspecified osteoarthritis, unspecified site; R40.0 Somnolence; Z72.89 Other problems related to lifestyle; Z79.891 Long term (current) use of opiate analgesic; Z79.899 Other long term (current) drug therapy; Z88.2 Allergy status to sulfonamides; Z88.1 Allergy status to other antibiotic agents; Z88.8 Allergy status to other drugs, medicaments and biological substances

== ENCOUNTER → 2021-03-17 | Outpatient (CLI) | payer OTHER ==
[~2021-03-17] VITALS: Ht 193 cm; Wt 106.9 kg
[2021-03-17 08:38] VITALS: BP 132/92
--- NOTE | 2021-03-17 08:53 | NUR ---
Pain Clinic Assessment: 1. History of Osteoarthritis: BACK KNEES History of Rheumatoid Arthritis: Not Applicable 2. Height: 6 ft. 4 in. 193.0 cm. Weight: 235.6 lb. oz. 106.868 kg. Patient's BMI: 28.7 3. Vital Signs: BP: 132/92 Pulse: 86 Resp: 20 Temp: 02 Sat: 98 ECG Mon: 4. Pain Intensity: 7 5. Fall Risk: Dizziness: N Needs help standing or walking: N Fallen in the last 3 months: N Fall risk comments: 6. Patient on Blood Thinner: None 7. History of Hypertension: Y 8. Opioid Therapy greater than 6 weeks: Y Opiate Contract Signed: 01/23/17 9. Risk Assessment Tool Provided: LOW RISK 1 10. Functional Assessment Tool: 11. Recreational Drug Use: Never Drug Type: Tobacco Use: Vaping Tobacco Type: Amount or Packs/day: How Many Years: Alcohol Use: Yes Frequency: Quant:
== END ==
LOC: PAIN 07:01
PROVIDERS: ATTEND Anesthesiology Pain Medicine
DX: M54.5 Low back pain (principal); G89.29 Other chronic pain; R40.0 Somnolence; I10 Essential (primary) hypertension; M25.561 Pain in right knee; K21.9 Gastro-esophageal reflux disease without esophagitis; Z79.899 Other long term (current) drug therapy; Z79.891 Long term (current) use of opiate analgesic; Z86.16 Personal history of COVID-19; Z88.2 Allergy status to sulfonamides; Z88.8 Allergy status to other drugs, medicaments and biological substances

== ENCOUNTER → 2021-07-05 | Outpatient (CLI) | payer OTHER ==
[~2021-07-05] VITALS: Ht 193 cm; Wt 111.0 kg
[~2021-07-05] MED LIST changes: +FML FORTE5 ML EA. EYE; +RESTASIS1 EACH OPHTHALMIC
[2021-07-05 08:12] VITALS: BP 143/83
--- NOTE | 2021-07-05 08:21 | NUR ---
Pain Clinic Assessment: 1. History of Osteoarthritis: BACK KNEES History of Rheumatoid Arthritis: Not Applicable 2. Height: 6 ft. 4 in. 193.0 cm. Weight: 244.8 lb. oz. 111.041 kg. Patient's BMI: 29.8 3. Vital Signs: BP: 143/83 Pulse: 102 Resp: 16 Temp: 02 Sat: 96 ECG Mon: 4. Pain Intensity: 7 TO 8 5. Fall Risk: Dizziness: Y Needs help standing or walking: N Fallen in the last 3 months: N Fall risk comments: 6. Patient on Blood Thinner: None 7. History of Hypertension: Y 8. Opioid Therapy greater than 6 weeks: Y Opiate Contract Signed: 01/23/17 9. Risk Assessment Tool Provided: LOW RISK 1 10. Functional Assessment Tool: 11. Recreational Drug Use: Never Drug Type: Tobacco Use: Vaping Tobacco Type: Amount or Packs/day: How Many Years: Alcohol Use: Yes Frequency: Special Occasions Quant: 1
== END ==
LOC: PAIN 07:45
PROVIDERS: ATTEND Anesthesiology Pain Medicine
DX: G89.29 Other chronic pain (principal); M79.672 Pain in left foot; N50.819 Testicular pain, unspecified; M54.50 Low back pain, unspecified; I10 Essential (primary) hypertension; M25.561 Pain in right knee; Z79.82 Long term (current) use of aspirin; Z79.899 Other long term (current) drug therapy; Z88.8 Allergy status to other drugs, medicaments and biological substances